=== PATIENT | male | born 1930 | race Two or more races ===

== ENCOUNTER 2016-06-08 18:07 | Inpatient (IN) | payer MEDICARE ==
[2016-06-08 20:35] LABS: Glucose,Whole Blood 171 mg/dL (75-99)
[2016-06-08 21:14] LABS: Basophils % (A) 0 %; CH 29.9; CHCM 34.8; Eosinophils # (A) 0.1 k/uL (0-0.7); Eosinophils % (A) 0 %; HCT 41.3 % (39.0-53.0); HDW 2.83; HGB 14.1 gm/dL (13.0-17.5); Immature Gran Flag Slight; Luc # (Auto) 0.18; Luc % (Auto) 1; Lymphocytes # (A) 0.7 k/uL (1.0-4.8); Lymphocytes % (A) 3 %; MCH 29.5 pg (25.0-35.0); MCHC 34.2 g/dL (31.0-37.0); MCV 86.4 fL (80.0-100.0); Mean Platelet Volume 6.9; Monocytes # (A) 0.8 k/uL (0-1.0); Monocytes % (A) 4 %; Neutrophils # (A) 18.2 k/uL (1.3-7.7); Neutrophils % (A) 91 %; RBC 4.78 m/uL (4.30-5.90); RDW 14.9 % (11.5-15.5); WBC 19.9 k/uL (3.8-10.6); WBC (Perox) 20.85
--- NOTE | 2016-06-08 21:25 | P.GSCN ---
History of Present Illness Consult date: 06/08/16 Reason for Consult: bowel obstruction History of present illness: patient was transferred from [facility] with a diagnosis of bowel obstruction. The patient had a CAT scan performed there. He is a poor historian. He describes episodes of vomiting and abdominal pain. He states his abdominal pain is improved. He currently has a nasogastric tube in place. Apparently he had what was described as coffee-ground emesis at one point. The nasogastric tube output currently is bilious. He has a history of previous colorectal cancer and a previous incisional hernia repair he states.I am unable to access [place] results. His white blood cell count here is 19.9.he is afebrile but mildly tachycardic. 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 Past Anesthesia/Blood Transfusion Reactions: No Reported Reaction Past Psychological History: No Psychological Hx Reported Additional Psychological History / Comment(s): PT LIVES WITH HIS BROTHER, IS INDEPENDANT. 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 Smoking Status: Never smoker Past Alcohol Use History: None Reported Additional Past Alcohol Use History / Comment(s): PT NEVER SMOKED CIG BUT WOULD ENJOY A CIGAR FROM TIME TO TIME IF OFFERED TO HIM Past Drug Use History: None Reported - Past Family History Father Family Medical History: Cancer Additional Family Medical History / Comment(s): COLON CANCER Mother Family Medical History: CVA/TIA, Eye Disorder Additional Family Medical History / Comment(s): MAC DEGENERATION Medications and Allergies Home Medications Medication Instructions Recorded Confirmed Type Aspirin 81 mg PO DAILY 05/23/15 06/08/16 History Atenolol [Tenormin] 25 mg PO DAILY 05/23/15 06/08/16 History Cholecalciferol [Vitamin D3] 1,000 unit PO DAILY 05/23/15 06/08/16 History Vit A,C & E/Lutein/Minerals 1 tab PO DAILY 05/23/15 06/08/16 History [Ocuvite with Lutein Tablet] traMADol HCL [Ultram] 50 mg PO Q6H PRN 02/14/16 06/08/16 History Acetaminophen Tab [Tylenol] 650 mg PO Q4H PRN 06/08/16 06/08/16 History DULoxetine HCL [Cymbalta] 30 mg PO DAILY 06/08/16 06/08/16 History Loperamide [Imodium] 2 mg PO DAILY PRN 06/08/16 06/08/16 History Loratadine [Claritin] 10 mg PO DAILY 06/08/16 06/08/16 History Melatonin 5 mg PO DAILY 06/08/16 06/08/16 History Allergies Allergy/AdvReac Type Severity Reaction Status Date / Time No Known Allergies Allergy Verified 02/14/16 16:00 Surgical - Exam Vital Signs Temp Pulse Resp BP Pulse Ox 98.1 F 110 H 18 114/72 94 L 06/08/16 20:13 06/08/16 20:13 06/08/16 20:13 06/08/16 20:13 06/08/16 20:13 Physical exam: General: elderly white male in no distress, appears comfortable HEENT: Normocephalic, sclerae nonicteric Abdomen: mildly distended, mild diffuse tenderness, no rebound or guarding, no localized tenderness, midline scar with some diastases, no fascial defect palpated Extremities: No edema Neuro: Alert but confused Results - Labs 06/08/16 21:01 Abnormal Lab Results - Last 24 Hours (Table) 06/08/16 06/08/16 Range/Units 20:34 21:01 WBC 19.9 H (3.8-10.6) k/uL Neutrophils # 18.2 H (1.3-7.7) k/uL Lymphocytes # 0.7 L (1.0-4.8) k/uL POC Glucose (mg/dL) 171 H (75-99) mg/dL Assessment and Plan (1) Small bowel obstruction Narrative/Plan: we'll review the patient's CAT scan performed at [place]. Continue nasogastric tube to suction. Add IV Zosyn. Repeat abdominal x-rays tomorrow. Repeat CBC tomorrow. We'll follow closely with you. Status: Acute
[2016-06-08 21:31] LABS: Calcium 9.8 mg/dL (8.4-10.2); Magnesium 1.8 mg/dL (1.6-2.3); Potassium 5.8 mmol/L (3.5-5.1)
[2016-06-08 22:53] LABS: Amorphous Sediment,Urine Rare /hpf; Appearance,Urine Cloudy (Clear); Bilirubin,Urine Negative (Negative); Calcium Oxalate Crystals,Urine Few /hpf; Glucose,Urine (UA) Negative (Negative); Ketones,Urine Trace (Negative); Leukocyte Esterase,Urine Negative (Negative); Nitrite,Urine Negative (Negative); Particle Count 4539; Protein,Urine 1+ (Negative); RBC,Urine 2 /hpf (0-5); Specific Gravity,Urine 1.017 (1.001-1.035); UA Billing (MACRO vs. MICRO) MICRO; WBC,Urine 1 /hpf (0-5)
[2016-06-08] MEDS ORDERED: SODIUM CHLORIDE 0.9% 1,000 ML IV ONE (23:25)
[2016-06-08] MEDS: PIPERACILLIN-TAZOBACTAM 3.375 GM in DEXTROSE/WATER 1 50ML.BAG IVPB SCH (23:38)
[2016-06-09] MEDS: SODIUM CHLORIDE 0.9% 1,000 ML IV SCH ×3 (02:01→23:17)
[2016-06-09 03:19] LABS: Calcium 9.5 mg/dL (8.4-10.2); Potassium 4.8 mmol/L (3.5-5.1)
[2016-06-09 03:24] LABS: Basophils # (A) 0.1 k/uL (0-0.2); Basophils % (A) 1 %; CHCM 34.1; Eosinophils % (A) 0 %; HCT 39.4 % (39.0-53.0); HDW 2.74; HGB 13.1 gm/dL (13.0-17.5); Luc # (Auto) 0.09; Luc % (Auto) 1; Lymphocytes # (A) 0.6 k/uL (1.0-4.8); Lymphocytes % (A) 3 %; MCH 29.3 pg (25.0-35.0); MCHC 33.1 g/dL (31.0-37.0); MCV 88.5 fL (80.0-100.0); Mean Platelet Volume 7.2; Monocytes # (A) 0.5 k/uL (0-1.0); Monocytes % (A) 3 %; Neutrophils # (A) 16.2 k/uL (1.3-7.7); Neutrophils % (A) 93 %; RBC 4.46 m/uL (4.30-5.90); RDW 15.1 % (11.5-15.5); WBC 17.5 k/uL (3.8-10.6); WBC (Perox) 18.46
[2016-06-09] MEDS: ACETAMINOPHEN IV (For NPO) 1,000 MG in EMPTY BAG 1 BAG IVPB PRN ×2 (04:04→16:52)
[2016-06-09 05:50] LABS: Glucose,Whole Blood 160 mg/dL (75-99)
[2016-06-09] MEDS: PIPERACILLIN-TAZOBACTAM 3.375 GM in DEXTROSE/WATER 1 50ML.BAG IVPB SCH ×3 (08:39→23:16)
--- NOTE | 2016-06-09 11:36 | P.PN ---
Subjective Principal diagnosis: Small bowel obstruction Patient sleeping comfortably. Remains slightly confused. Denies abdominal pain however. No flatus or bowel movement per the patient or the nursing staff. Today's abdominal x-rays show a persistent bowel dilation. White blood cell count slightly improved. Lactic acid is now normal. Did have some low- grade fevers. Objective - Vital Signs Vital signs: Vital Signs Temp 99.3 F 06/09/16 08:30 Pulse 88 06/09/16 08:30 Resp 16 06/09/16 08:30 BP 177/90 06/09/16 08:30 Pulse Ox 95 06/09/16 08:30 Intake & Output 06/08/16 06/09/16 06/09/16 18:59 06:59 18:59 Intake Total 1550 Output Total 1181 Balance 369 Weight 68.4 kg Intake: IV 1400 Sodium Chloride 0.9% 1, 1400 000 ml @ 100 mls/hr IV . Q10H [facility] Rx#:[id number] Intake, IV Titration 150 Amount ACETAMINOPHEN IV (For NPO 100 ) 1,000 mg In Empty Bag 1 bag @ 400 mls/hr IVPB Q8HR PRN Rx#:[id number] Piperacillin-Tazobactam 3 50 .375 gm In Dextrose/Water 1 50ml.bag @ 12.5 mls/hr IVPB Q8HR [facility] Rx#: [id number] Output: Gastric Drainage 850 Urine 331 Other: Voiding Method Diaper Indwelling Catheter - Exam Abdomen: Soft, mild distention, minimal tenderness, bowel sounds present - Labs CBC & Chem 7: 06/09/16 02:51 06/09/16 02:51 Labs: Abnormal Lab Results - Last 24 Hours (Table) 06/08/16 06/08/16 06/08/16 Range/Units 20:34 21:01 21:01 WBC 19.9 H (3.8-10.6) k/uL Neutrophils # 18.2 H (1.3-7.7) k/uL Lymphocytes # 0.7 L (1.0-4.8) k/uL Sodium 134 L (137-145) mmol/L Potassium 5.8 H (3.5-5.1) mmol/L Chloride 97 L (98-107) mmol/L Carbon Dioxide 21 L (22-30) mmol/L BUN 35 H (9-20) mg/dL Creatinine 1.40 H (0.66-1.25) mg/dL Glucose 186 H (74-99) mg/dL POC Glucose (mg/dL) 171 H (75-99) mg/dL Plasma Lactic Acid Galen (0.7-2.0) mmol/L Urine Protein (Negative) Urine Ketones (Negative) Calcium Oxalate Crystal (None) /hpf Amorphous Sediment (None) /hpf 06/08/16 06/08/16 06/09/16 Range/Units 21:01 22:25 02:51 WBC 17.5 H (3.8-10.6) k/uL Neutrophils # 16.2 H (1.3-7.7) k/uL Lymphocytes # 0.6 L (1.0-4.8) k/uL Sodium (137-145) mmol/L Potassium (3.5-5.1) mmol/L Chloride (98-107) mmol/L Carbon Dioxide (22-30) mmol/L BUN (9-20) mg/dL Creatinine (0.66-1.25) mg/dL Glucose (74-99) mg/dL POC Glucose (mg/dL) (75-99) mg/dL Plasma Lactic Acid Galen 4.2 H* (0.7-2.0) mmol/L Urine Protein 1+ H (Negative) Urine Ketones Trace H (Negative) Calcium Oxalate Crystal Few H (None) /hpf Amorphous Sediment Rare H (None) /hpf 06/09/16 06/09/16 Range/Units 02:51 05:49 WBC (3.8-10.6) k/uL Neutrophils # (1.3-7.7) k/uL Lymphocytes # (1.0-4.8) k/uL Sodium 136 L (137-145) mmol/L Potassium (3.5-5.1) mmol/L Chloride 97 L (98-107) mmol/L Carbon Dioxide (22-30) mmol/L BUN 39 H (9-20) mg/dL Creatinine 1.47 H (0.66-1.25) mg/dL Glucose 179 H (74-99) mg/dL POC Glucose (mg/dL) 160 H (75-99) mg/dL Plasma Lactic Acid Galen (0.7-2.0) mmol/L Urine Protein (Negative) Urine Ketones (Negative) Calcium Oxalate Crystal (None) /hpf Amorphous Sediment (None) /hpf Microbiology - Last 24 Hours (Table) 06/08/16 22:25 Urine Culture - Preliminary Urine,Catheterized Assessment and Plan (1) Small bowel obstruction Narrative/Plan: Patient with leukocytosis and low-grade fevers. His abdominal examination however is fairly unimpressive. He seems to be responding to bowel decompression. Will repeat abdominal x-rays tomorrow. I will discuss the surgical options with the patient's family and reserve exploration at this time. Status: Acute
[2016-06-09 11:38] LABS: Glucose,Whole Blood 124 mg/dL (75-99)
--- NOTE | 2016-06-09 12:14 | XR ---
EXAMINATION TYPE: XR abdomen complete w decub DATE OF EXAM: 06/09/2016 10:30 AM COMPARISON: NONE HISTORY: Follow up bowel obstruction TECHNIQUE: Supine, upright, and left side down lateral decubitus views of the abdomen are obtained. FINDINGS: Severely dilated small bowel loops measuring 7 cm in diameter. Findings suggest previous conroy rgery. Arthropathy of the hips of previous surgery involving the left hip. Diffuse osteopenia noted. NG tube appears coiled back likely within the stomach. Cannot exclude a small amount of free intraper itoneal air. Degenerative change of the lumbar spine noted. IMPRESSION: 1. Markedly dilated small bowel loops in a pattern suggestive of high-grade obstruction. NG tube has a somewhat unusual course and could be correlated clinically or with CAT scan. Report called to the rudy padron's nurse.
--- NOTE | 2016-06-09 13:11 | P.HPIM ---
History of Present Illness H&P Date: 06/09/16 Chief Complaint: Abdominal pain This is a 85-year-old gentleman with past medical history noted below significant for advanced dementia and bilateral hearing loss who was transferred from [facility] for further evaluation of small bowel obstruction. Patient is very hard of hearing and is a very poor historian. Today he was lethargic and hardly arousable. He eventually woke up but was unable to provide any significant medical history. He denies any significant abdominal pain and reports some mild abdominal discomfort. He denies any nausea or vomiting. He had an NG tube inserted and connected to intermittent wall suctioning. No bowel movement or passing of flatus since last night. General surgery following closely. Abdominal x-ray this morning showed high- grade small bowel obstruction with a suspected dilated loop of 7 cm. Review of Systems Review of system: 14 points review of systems were obtained and were negative except to what were mentioned in the HPI. 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 lives at [employer] Smoking Status: Never smoker Past Alcohol Use History: None Reported Additional Past Alcohol Use History / Comment(s): PT NEVER SMOKED CIG BUT WOULD ENJOY A CIGAR FROM TIME TO TIME IF OFFERED TO HIM Past Drug Use History: None Reported - Past Family History Father Family Medical History: Cancer Additional Family Medical History / Comment(s): COLON CANCER Mother Family Medical History: CVA/TIA, Eye Disorder Additional Family Medical History / Comment(s): MAC DEGENERATION Medications and Allergies Home Medications Medication Instructions Recorded Confirmed Type Aspirin 81 mg PO DAILY 05/23/15 06/08/16 History Atenolol [Tenormin] 25 mg PO DAILY 05/23/15 06/08/16 History Cholecalciferol [Vitamin D3] 1,000 unit PO DAILY 05/23/15 06/08/16 History Vit A,C & E/Lutein/Minerals 1 tab PO DAILY 05/23/15 06/08/16 History [Ocuvite with Lutein Tablet] traMADol HCL [Ultram] 50 mg PO Q6H PRN 02/14/16 06/08/16 History Acetaminophen Tab [Tylenol] 650 mg PO Q4H PRN 06/08/16 06/08/16 History DULoxetine HCL [Cymbalta] 30 mg PO DAILY 06/08/16 06/08/16 History Loperamide [Imodium] 2 mg PO DAILY PRN 06/08/16 06/08/16 History Loratadine [Claritin] 10 mg PO DAILY 06/08/16 06/08/16 History Melatonin 5 mg PO DAILY 06/08/16 06/08/16 History Allergies Allergy/AdvReac Type Severity Reaction Status Date / Time No Known Allergies Allergy Verified 02/14/16 16:00 Physical Exam Vitals: Vital Signs Temp Pulse Resp BP Pulse Ox 06/09/16 11:20 92 16 175/89 94 L 06/09/16 08:30 99.3 F 88 16 177/90 95 06/09/16 03:25 91 16 06/09/16 03:21 100.2 F H 91 16 169/79 95 06/09/16 01:05 99.6 F 94 16 163/77 94 L 06/09/16 00:00 98 18 06/08/16 22:59 100.5 F H 98 18 145/83 90 L 06/08/16 20:13 98.1 F 110 H 18 114/72 94 L 06/08/16 20:00 110 H Intake and Output 06/08/16 06/09/16 06/09/16 22:59 06:59 14:59 Intake Total 1550 Output Total 301 880 Balance -301 670 Intake: IV 1400 Sodium Chloride 0.9% 1, 1400 000 ml @ 100 mls/hr IV . Q10H [facility] Rx#:[id number] Intake, IV Titration 150 Amount ACETAMINOPHEN IV (For NPO 100 ) 1,000 mg In Empty Bag 1 bag @ 400 mls/hr IVPB Q8HR PRN Rx#:[id number] Piperacillin-Tazobactam 3 50 .375 gm In Dextrose/Water 1 50ml.bag @ 12.5 mls/hr IVPB Q8HR [facility] Rx#: [id number] Output: Gastric Drainage 300 550 Urine 1 330 Other: Voiding Method Diaper Diaper Indwelling Catheter Weight 68.4 kg 68.4 kg General: The patient is lethargic and hardly arousable. He is very hard of hearing. He was oriented to himself and to the place only. He is not in any acute distress. Eye: extra-ocular movements are intact; there is normal conjunctiva bilaterally. . Neck: The neck is supple, there is no tenderness or JVD. Cardiovascular: Normal S1-S2, no S3-S4, no murmurs. Respiratory: Lungs clear to auscultation bilaterally with no wheezes rhonchi or rales. Gastrointestinal: Abdomen is soft, mildly tender, and nondistended Musculoskeletal: There is no pedal edema. Skin: Skin is warm and dry Results CBC & Chem 7: 06/09/16 02:51 06/09/16 02:51 Labs: Abnormal Lab Results - Last 24 Hours (Table) 06/08/16 06/08/16 06/08/16 Range/Units 20:34 21:01 21:01 WBC 19.9 H (3.8-10.6) k/uL Neutrophils # 18.2 H (1.3-7.7) k/uL Lymphocytes # 0.7 L (1.0-4.8) k/uL Sodium 134 L (137-145) mmol/L Potassium 5.8 H (3.5-5.1) mmol/L Chloride 97 L (98-107) mmol/L Carbon Dioxide 21 L (22-30) mmol/L BUN 35 H (9-20) mg/dL Creatinine 1.40 H (0.66-1.25) mg/dL Glucose 186 H (74-99) mg/dL POC Glucose (mg/dL) 171 H (75-99) mg/dL Plasma Lactic Acid Galen (0.7-2.0) mmol/L Urine Protein (Negative) Urine Ketones (Negative) Calcium Oxalate Crystal (None) /hpf Amorphous Sediment (None) /hpf 06/08/16 06/08/16 06/09/16 Range/Units 21:01 22:25 02:51 WBC 17.5 H (3.8-10.6) k/uL Neutrophils # 16.2 H (1.3-7.7) k/uL Lymphocytes # 0.6 L (1.0-4.8) k/uL Sodium (137-145) mmol/L Potassium (3.5-5.1) mmol/L Chloride (98-107) mmol/L Carbon Dioxide (22-30) mmol/L BUN (9-20) mg/dL Creatinine (0.66-1.25) mg/dL Glucose (74-99) mg/dL POC Glucose (mg/dL) (75-99) mg/dL Plasma Lactic Acid Galen 4.2 H* (0.7-2.0) mmol/L Urine Protein 1+ H (Negative) Urine Ketones Trace H (Negative) Calcium Oxalate Crystal Few H (None) /hpf Amorphous Sediment Rare H (None) /hpf 06/09/16 06/09/16 06/09/16 Range/Units 02:51 05:49 11:35 WBC (3.8-10.6) k/uL Neutrophils # (1.3-7.7) k/uL Lymphocytes # (1.0-4.8) k/uL Sodium 136 L (137-145) mmol/L Potassium (3.5-5.1) mmol/L Chloride 97 L (98-107) mmol/L Carbon Dioxide (22-30) mmol/L BUN 39 H (9-20) mg/dL Creatinine 1.47 H (0.66-1.25) mg/dL Glucose 179 H (74-99) mg/dL POC Glucose (mg/dL) 160 H 124 H (75-99) mg/dL Plasma Lactic Acid Galen (0.7-2.0) mmol/L Urine Protein (Negative) Urine Ketones (Negative) Calcium Oxalate Crystal (None) /hpf Amorphous Sediment (None) /hpf Microbiology - Last 24 Hours (Table) 06/08/16 22:25 Urine Culture - Preliminary Urine,Catheterized Thrombosis Risk Factor Assmnt - Choose All That Apply Any of the Below Risk Factors Present?: Yes Each Factor Represents 1 point: Medical pt on bed rest, Swollen legs (current) Other Risk Factors: Yes Each Risk Factor Represents 3 Points: Age 75 years or older Thrombosis Risk Factor Assessment Total Risk Factor Score: 5 Thrombosis Risk Factor Assessment Level: High Risk Assessment and Plan Plan: 1. Small bowel obstruction: Gen. surgery following closely. We will discuss abdominal x-ray findings and consider computed tomography scan of the abdomen. Continue NG tube to intermittent wall suctioning. 2. Sepsis on presentation most likely secondary to intra-abdominal source. Currently on IV Zosyn. Blood culture sent. Lactate is back to normal. I will consult infectious disease for further evaluation. 3. Essential hypertension: Blood pressure elevated this morning. May use IV hydralazine as needed for systolic blood pressure above 155 4. Advanced dementia 5. Bilateral hearing loss 6. GI and DVT prophylaxis with IV Protonix and subcu heparin Today, I reviewed his medication list lab work results. We will continue supportive care and IV fluid hydration. Pain control and anti-emetic as needed. No family members at bedside. We will attempt to reach by phone. Repeat lab work in the morning. Appreciate safety consultant's recommendations.
[2016-06-09] MEDS: PANTOPRAZOLE 40 MG/10 ML VIAL IVP SCH (13:28)
[2016-06-09] MEDS: hydrALAZINE HCL 20 MG/ML 1 ML VIAL IVP PRN (13:29)
[2016-06-09 17:10] LABS: Glucose,Whole Blood 106 mg/dL (75-99)
[2016-06-09 20:44] LABS: Glucose,Whole Blood 95 mg/dL (75-99)
[2016-06-09] MEDS: HEPARIN SODIUM,PORCINE 5,000 UNIT/ML 1 ML VIAL SQ SCH (23:17)
[2016-06-10 05:42] LABS: Glucose,Whole Blood 92 mg/dL (75-99)
[2016-06-10] MEDS: SODIUM CHLORIDE 0.9% 1,000 ML IV SCH ×2 (06:19→08:42)
[2016-06-10 06:55] LABS: Basophils % (A) 0 %; CH 29.3; CHCM 32.5; Eosinophils % (A) 0 %; HCT 33.7 % (39.0-53.0); HDW 2.76; Luc # (Auto) 0.15; Luc % (Auto) 2; Lymphocytes # (A) 0.7 k/uL (1.0-4.8); Lymphocytes % (A) 7 %; MCH 29.6 pg (25.0-35.0); MCHC 32.6 g/dL (31.0-37.0); MCV 90.6 fL (80.0-100.0); Mean Platelet Volume 6.2; Monocytes # (A) 0.6 k/uL (0-1.0); Monocytes % (A) 5 %; Neutrophils # (A) 8.8 k/uL (1.3-7.7); Neutrophils % (A) 86 %; RBC 3.72 m/uL (4.30-5.90); RDW 14.8 % (11.5-15.5); WBC 10.2 k/uL (3.8-10.6); WBC (Perox) 10.79
[2016-06-10 07:08] LABS: ALT 27 U/L (21-72); AST 21 U/L (17-59); Alkaline Phosphatase 71 U/L (38-126); Anion Gap 8 mmol/L; Blood Urea Nitrogen 35 mg/dL (9-20); Calcium 8.7 mg/dL (8.4-10.2); Carbon Dioxide 28 mmol/L (22-30); Chloride 104 mmol/L (98-107); Glucose 88 mg/dL (74-99); Magnesium 1.9 mg/dL (1.6-2.3); Non-African American GFR(MDRD) >60 (>60 ml/min/1.73 sqM); Potassium 3.9 mmol/L (3.5-5.1); Sodium 140 mmol/L (137-145); Total Bilirubin 0.7 mg/dL (0.2-1.3); Total Protein 5.6 g/dL (6.3-8.2)
--- NOTE | 2016-06-10 08:02 | CONS ---
DATE OF CONSULTATION: DATE OF SERVICE: 06/09/2016 REASON FOR CONSULTATION: Sepsis. HISTORY OF PRESENT ILLNESS: The patient is an 85-year-old male who has been transferred from [facility] for further evaluation of small bowel obstruction. Apparently, the patient presented to that facility with weakness, abdominal pain and throwing up. He did apparently have a CAT scan at that facility with evidence of a small bowel obstruction. The patient did have NT placed in and has been transferred to the [facility] for further evaluation. Patient did spike a low-grade fever of 100.5 and did have an elevated white count with concern for sepsis. The patient has been started on Zosyn. I was asked to see the patient for further recommendation regarding antibiotic therapy. Most of the information has been obtained from review of the chart and talking to nursing staff as the patient is unable to report any reliable history. He is mostly sleepy, lethargic and did not answer a single question and no family member was available at the bedside. He did have an NG which was mostly dark NG output. No bowel movement per the sitter or the RN and hemodynamically stable, not on any pressor support. REVIEW OF SYSTEMS: Could not be reliably obtained, but the positive points has been mentioned in the HPI. PAST MEDICAL HISTORY: Significant for hypertension, osteoarthritis, musculoskeletal disorder, eye disorder, cancer. He did have a history of colorectal cancer. macular degeneration and hard of hearing. PAST SURGICAL HISTORY: Bowel resection, hernia repair and left hip surgery. SOCIAL HISTORY: No history of smoking, drinking, or drug use. FAMILY HISTORY: Father had colon cancer. Mother with history of CVA, TIA and macular degeneration. ALLERGIES: No known drug allergies. Medications currently include the patient is on Tylenol, heparin, hydralazine, Protonix, piperacillin tazobactam, and IV fluid. On examination, blood pressure is 138/61 with a pulse of 95, temperature 99.6. T-max of 100.5. He is 96% on room air. General description is an elderly male, lying in bed in no distress. No tachypnea or accessory muscle of respiration use. HEENT EXAMINATION: No pallor or scleral icterus. Oral mucous membrane is dry. NECK: Trachea central. There is no thyromegaly. LUNGS: Unlabored breathing. Clear to auscultation anteriorly. No wheeze or crackle. HEART: S1, S2. Regular rate and rhythm. ABDOMEN: Soft, slightly tender. No organomegaly. EXTREMITIES: No edema of feet. SKIN EXAMINATION: No rash or mass palpable. NEUROLOGICAL: The patient is lethargic. Orientation could not be determined. LABS: Hemoglobin is 13.1. White count 17.5, yesterday's white count was 19.9 with a BUN of 39, creatinine 1.47. Lactic acid was 4.2 down to 1.5. Urine has been negative. DIAGNOSTIC IMPRESSION AND PLAN: Patient with sepsis in a patient who did have a fever with elevated white count source is likely abdominal in this patient and this patient at present has been transferred to this facility because of a small bowel obstruction, did have an elevated lactic acid likely abdominal source and the patient did have previous abdominal surgery with a question of possible adhesion with secondary small bowel obstruction or possibly ischemia cannot be entirely excluded. We will need to cover for the enteric gram-negative pathogen, both aerobes and anaerobes. PLAN: 1. Zosyn at 3.375 grams q8hr to continue. 2. Will follow up on the blood cultures that was ordered yesterday. 3. Repeat abdominal series tomorrow and if no improvement he may benefit from a repeat CT of the abdomen and pelvis. 4. Will follow up on the clinical condition and cultures to further adjust the medication if needed. Thank you for this consultation. We will follow this patient along with you. VANESSA
[2016-06-10] MEDS: PIPERACILLIN-TAZOBACTAM 3.375 GM in DEXTROSE/WATER 1 50ML.BAG IVPB SCH ×2 (08:39→16:57)
[2016-06-10] MEDS: HEPARIN SODIUM,PORCINE 5,000 UNIT/ML 1 ML VIAL SQ SCH ×2 (08:40→21:15)
[2016-06-10] MEDS: PANTOPRAZOLE 40 MG/10 ML VIAL IVP SCH (08:43)
--- NOTE | 2016-06-10 11:07 | XR ---
EXAMINATION TYPE: XR abdomen complete w decub DATE OF EXAM: 06/10/2016 10:15 AM COMPARISON: Prior abdomen multiple view of 09 June 2016 HISTORY: Bowel obstruction TECHNIQUE: 3 views of the abdomen on 4 images FINDINGS: NG tube is coiled within the stomach. There is no evidence for pneumoperitoneum. Improvement in the bowel distention is noted. NG tube is present. Some air-fluid levels are present. No mass effects are seen. Calcifications within the pelvis are stable, post anterior abdominal wall hernia repair change is ivy pected. IMPRESSION: Suspect some interval improvement.
[2016-06-10] MEDS: hydrALAZINE HCL 20 MG/ML 1 ML VIAL IVP PRN (12:01)
[2016-06-10] MEDS: DEXTROSE 5%-0.45% NACL 1,000 ML IV SCH ×2 (12:01→21:15)
[2016-06-10] MEDS: ONDANSETRON 4 MG/2 ML VIAL IVP PRN (12:01)
[2016-06-10 12:02] LABS: Glucose,Whole Blood 75 mg/dL (75-99)
--- NOTE | 2016-06-10 12:08 | P.PN ---
Subjective Patient appeared comfortable today. He is passing gas. Output through the NG tube is improving. Abdominal x-ray showed some improvement this morning. Objective - Vital Signs Vital signs: Vital Signs Temp 96.7 F L 06/10/16 11:37 Pulse 63 06/10/16 11:37 Resp 18 06/10/16 11:37 BP 162/70 06/10/16 11:37 Pulse Ox 98 06/10/16 11:37 Intake & Output 06/09/16 06/10/16 06/10/16 18:59 06:59 18:59 Intake Total 850 1150 Output Total 700 800 800 Balance 150 350 -800 Weight 68.4 kg 71.5 kg Intake: IV 850 1150 Piperacillin-Tazobactam 3 50 50 .375 gm In Dextrose/Water 1 50ml.bag @ 12.5 mls/hr IVPB Q8HR [facility] Rx#: [id number] Sodium Chloride 0.9% 1, 800 1100 000 ml @ 100 mls/hr IV . Q10H [facility] Rx#:[id number] Oral 0 Output: Gastric Drainage 300 100 Urine 400 700 800 Other: Voiding Method Indwelling Catheter Indwelling Catheter Indwelling Catheter # Bowel Movements 1 1 - Exam General: The patient is awake and alert, in no distress Eye: there is normal conjunctiva bilaterally. Neck: The neck is supple, there is no JVD. Cardiovascular: Normal S1-S2, no S3-S4, no murmurs. Respiratory: Lungs clear to auscultation bilaterally Gastrointestinal: Abdomen is soft, nontender Musculoskeletal: There is no pedal edema. Neurological:. Speech is normal. Skin: Skin is warm and dry - Labs CBC & Chem 7: 06/10/16 06:25 06/10/16 06:25 Labs: Abnormal Lab Results - Last 24 Hours (Table) 06/09/16 06/10/16 06/10/16 Range/Units 16:49 06:25 06:25 RBC 3.72 L (4.30-5.90) m/uL Hgb 11.0 L (13.0-17.5) gm/dL Hct 33.7 L (39.0-53.0) % Neutrophils # 8.8 H (1.3-7.7) k/uL Lymphocytes # 0.7 L (1.0-4.8) k/uL BUN 35 H (9-20) mg/dL POC Glucose (mg/dL) 106 H (75-99) mg/dL Total Protein 5.6 L (6.3-8.2) g/dL Albumin 3.0 L (3.5-5.0) g/dL Microbiology - Last 24 Hours (Table) 06/08/16 21:01 Blood Culture - Preliminary Blood No Growth after 24 hours 06/08/16 22:25 Urine Culture - Preliminary Urine,Catheterized Assessment and Plan Plan: 1. Small bowel obstruction: Gen. surgery following closely. Repeat abdominal x -ray showing some improvement. Abdomen is soft on exam. Output through the NG tube is decreasing. Continue NG tube to intermittent wall suctioning. 2. Sepsis on presentation most likely secondary to intra-abdominal source. Currently on IV Zosyn. Blood culture sent. Lactate is back to normal. Infectious disease following. 3. Essential hypertension: Blood pressure elevated this morning. Add clonidine patch now that the patient is nothing by mouth. Continue IV hydralazine as needed for systolic blood pressure above 155 4. Advanced dementia 5. Bilateral hearing loss 6. GI and DVT prophylaxis with IV Protonix and subcu heparin Today, I reviewed his medication list lab work results. We will continue supportive care and IV fluid hydration. Pain control and anti-emetic as needed. Sister at bedside updated about his current condition. Questions answered to her satisfaction. Repeat lab work in the morning. Appreciate regulatory affairs consultant's recommendations.
[2016-06-10] MEDS ORDERED: cloNIDine 0.2 MG/24HR PATCH 1 PATCH PATCH TRANSDERM SCH (12:15)
[2016-06-10] MEDS ORDERED: ACETAMINOPHEN IV (For NPO) 1,000 MG in EMPTY BAG 1 BAG IVPB PRN (14:08)
[2016-06-10] MEDS: HYDROmorphone 1 MG/ML 1 ML SYRINGE IVP PRN (14:39)
--- NOTE | 2016-06-10 16:09 | P.PN ---
Subjective Principal diagnosis: Small bowel obstruction Patient did have a small bowel movement last night. His nasogastric output is diminished. He was having some pain rated at a 4 out of 10 earlier today. Low- grade fever of 99.6. White blood cell count today is normal at 10.2. X-rays are improved however there is still some small bowel dilation. Objective - Vital Signs Vital signs: Vital Signs Temp 99.6 F 06/10/16 14:01 Pulse 100 06/10/16 14:01 Resp 16 06/10/16 14:01 BP 126/58 06/10/16 14:01 Pulse Ox 99 06/10/16 14:01 Intake & Output 06/09/16 06/10/16 06/10/16 18:59 06:59 18:59 Intake Total 850 1150 Output Total 700 800 800 Balance 150 350 -800 Weight 68.4 kg 71.5 kg Intake: IV 850 1150 Piperacillin-Tazobactam 3 50 50 .375 gm In Dextrose/Water 1 50ml.bag @ 12.5 mls/hr IVPB Q8HR [facility] Rx#: [id number] Sodium Chloride 0.9% 1, 800 1100 000 ml @ 100 mls/hr IV . Q10H [facility] Rx#:[id number] Oral 0 Output: Gastric Drainage 300 100 Urine 400 700 800 Other: Voiding Method Indwelling Catheter Indwelling Catheter Indwelling Catheter # Bowel Movements 1 1 - Exam Abdomen: Soft, nondistended mild right-sided tenderness - Labs CBC & Chem 7: 06/10/16 06:25 06/10/16 06:25 Labs: Abnormal Lab Results - Last 24 Hours (Table) 06/09/16 06/10/16 06/10/16 Range/Units 16:49 06:25 06:25 RBC 3.72 L (4.30-5.90) m/uL Hgb 11.0 L (13.0-17.5) gm/dL Hct 33.7 L (39.0-53.0) % Neutrophils # 8.8 H (1.3-7.7) k/uL Lymphocytes # 0.7 L (1.0-4.8) k/uL BUN 35 H (9-20) mg/dL POC Glucose (mg/dL) 106 H (75-99) mg/dL Total Protein 5.6 L (6.3-8.2) g/dL Albumin 3.0 L (3.5-5.0) g/dL Microbiology - Last 24 Hours (Table) 06/08/16 22:25 Urine Culture - Final Urine,Catheterized 06/08/16 21:01 Blood Culture - Preliminary Blood No Growth after 24 hours Assessment and Plan (1) Small bowel obstruction Narrative/Plan: The patient small bowel obstruction is improving clinically. The patient's sister is present at the bedside. The clinical scenario was discussed in detail with her and her 2 brothers. The fairly impressive appearance of his presentation CAT scan was discussed. His elevated white blood cell count that is improved was reviewed. His low-grade fevers was also discussed. Clinically the patient is improving however I still have concerns that he may not resolve this bowel obstruction nonoperatively. Operative exploration was offered at this point and discussed in detail. They are not interested in surgery at this point. At one point the patient's sister mentioned that he would rather be hospice then have surgery. We will repeat abdominal x-rays tomorrow. Continue bowel decompression at this point. We'll follow closely with you. Status: Acute
[2016-06-10 16:50] LABS: Glucose,Whole Blood 95 mg/dL (75-99)
[2016-06-10 21:11] LABS: Glucose,Whole Blood 97 mg/dL (75-99)
--- NOTE | 2016-06-10 21:32 | PN ---
DATE OF SERVICE: 06/10/2016 REASON FOR FOLLOWUP: Sepsis, possible abdominal source. INTERVAL HISTORY: The patient is afebrile. He seemed to be more awake, alert today. He is not a very good historian. Output in the NG has decreased. Abdominal pain was unable to quantify any further. On examination, blood pressure 126/58 with a pulse of 100, temperature 99.6. He is 99% on room air. General description is an elderly male lying in bed in no distress. RESPIRATORY SYSTEM: Unlabored breathing. Clear to auscultation anteriorly. HEART: S1, S2. Regular rate and rhythm. ABDOMEN: Soft, no tenderness. LABS: Hemoglobin is 11, white count 10.2 with a BUN of 35, creatinine 1.02. DIAGNOSTIC IMPRESSION AND PLAN: Patient admitted to hospital with abdominal pain, did have a low-grade fever, elevated white count with concern of abdominal sepsis. Patient's blood cultures so far are negative. White count did improve. He will be maintained on Zosyn at this point. Family present at beside. Their questions were answered. VANESSA
[2016-06-11] MEDS: PIPERACILLIN-TAZOBACTAM 3.375 GM in DEXTROSE/WATER 1 50ML.BAG IVPB SCH ×3 (00:34→16:06)
[2016-06-11] MEDS: hydrALAZINE HCL 20 MG/ML 1 ML VIAL IVP PRN ×2 (00:50→11:43)
[2016-06-11] MEDS: DEXTROSE 5%-0.45% NACL 1,000 ML IV SCH ×2 (06:14→21:57)
[2016-06-11 06:15] LABS: Glucose,Whole Blood 106 mg/dL (75-99)
[2016-06-11 06:28] LABS: Basophils % (A) 0 %; CH 29.8; CHCM 33.7; Eosinophils # (A) 0.2 k/uL (0-0.7); Eosinophils % (A) 1 %; HDW 2.92; HGB 11.8 gm/dL (13.0-17.5); Luc # (Auto) 0.13; Luc % (Auto) 1; Lymphocytes # (A) 0.7 k/uL (1.0-4.8); Lymphocytes % (A) 7 %; MCH 29.9 pg (25.0-35.0); MCHC 33.5 g/dL (31.0-37.0); MCV 89.1 fL (80.0-100.0); Monocytes # (A) 0.6 k/uL (0-1.0); Monocytes % (A) 6 %; Neutrophils # (A) 9.1 k/uL (1.3-7.7); Neutrophils % (A) 85 %; RBC 3.94 m/uL (4.30-5.90); RDW 14.8 % (11.5-15.5); WBC 10.7 k/uL (3.8-10.6); WBC (Perox) 10.59
[2016-06-11 06:49] LABS: ALT 27 U/L (21-72); AST 19 U/L (17-59); Alkaline Phosphatase 77 U/L (38-126); Anion Gap 9 mmol/L; Blood Urea Nitrogen 18 mg/dL (9-20); Calcium 8.5 mg/dL (8.4-10.2); Carbon Dioxide 23 mmol/L (22-30); Chloride 103 mmol/L (98-107); Glucose 110 mg/dL (74-99); Magnesium 1.8 mg/dL (1.6-2.3); Non-African American GFR(MDRD) >60 (>60 ml/min/1.73 sqM); Potassium 3.4 mmol/L (3.5-5.1); Sodium 135 mmol/L (137-145); Total Bilirubin 0.9 mg/dL (0.2-1.3); Total Protein 5.5 g/dL (6.3-8.2)
[2016-06-11] MEDS: PANTOPRAZOLE 40 MG/10 ML VIAL IVP SCH (09:30)
[2016-06-11] MEDS: HEPARIN SODIUM,PORCINE 5,000 UNIT/ML 1 ML VIAL SQ SCH ×2 (09:30→20:34)
[2016-06-11] MEDS: POTASSIUM CHLORIDE 10 MEQ, LIDOCAINE 2% INJ 10 MG in SODIUM CHLORIDE 0.9% 100 ML IVPB SCH ×2 (09:31→11:43)
--- NOTE | 2016-06-11 11:14 | P.PN ---
Subjective This is a 85-year-old with advanced dementia and hearing loss. Was transferred from [facility]. He is found have a small bowel obstruction. Currently has NG tube in place. Surgical service is following. Today's abdominal x-rays pending. Patient lying in bed comfortably. Patient had about 100 mL coffee brown output through NG tube last night. No bowel movement or gas reported. Pain controlled. Objective - Vital Signs Vital signs: Vital Signs Temp 97.2 F L 06/11/16 08:00 Pulse 89 06/11/16 08:00 Resp 18 06/11/16 08:00 BP 148/70 06/11/16 08:00 Pulse Ox 97 06/11/16 08:00 Intake & Output 06/10/16 06/11/16 06/11/16 18:59 06:59 18:59 Intake Total 900 800 Output Total 1300 50 1350 Balance -400 750 -1350 Weight 71 kg Intake: IV 900 800 Piperacillin-Tazobactam 3 100 .375 gm In Dextrose/Water 1 50ml.bag @ 12.5 mls/hr IVPB Q8HR [facility] Rx#: [id number] Sodium Chloride 0.9% 1, 800 800 000 ml @ 100 mls/hr IV . Q10H [facility] Rx#:[id number] Oral 0 Output: Gastric Drainage 100 50 Urine 1200 1350 Other: Voiding Method Indwelling Catheter Indwelling Catheter Indwelling Catheter # Bowel Movements 1 - Exam Head normocephalic Neck supple Lungs clear to auscultation bilaterally no wheezing or crackles Heart regular rate and rhythm S1-S2, no rub or gallop Abdomen is soft nondistended. Mild diffuse tenderness with palpation Extremities no edema Neuro awake and pleasantly confused - Labs CBC & Chem 7: 06/11/16 06:03 06/11/16 06:03 Labs: Abnormal Lab Results - Last 24 Hours (Table) 06/11/16 06/11/16 06/11/16 Range/Units 06:03 06:03 06:12 WBC 10.7 H (3.8-10.6) k/uL RBC 3.94 L (4.30-5.90) m/uL Hgb 11.8 L (13.0-17.5) gm/dL Hct 35.0 L (39.0-53.0) % Neutrophils # 9.1 H (1.3-7.7) k/uL Lymphocytes # 0.7 L (1.0-4.8) k/uL Sodium 135 L (137-145) mmol/L Potassium 3.4 L (3.5-5.1) mmol/L Glucose 110 H (74-99) mg/dL POC Glucose (mg/dL) 106 H (75-99) mg/dL Total Protein 5.5 L (6.3-8.2) g/dL Albumin 3.1 L (3.5-5.0) g/dL Microbiology - Last 24 Hours (Table) 06/08/16 21:01 Blood Culture - Preliminary Blood No Growth after 48 hours 06/08/16 22:25 Urine Culture - Final Urine,Catheterized Assessment and Plan Plan: 1. Small bowel obstruction: Surgery is following closely. Appreciate their input. Abdominal x-ray pending. NG tube still in place. Surgery did offer operative exploration. however, family was not interested in surgery at this point. 2. Sepsis on presentation most likely secondary to intra-abdominal source. Currently on IV Zosyn. Blood culture negative so far. Lactate is back to normal. Infectious disease following. 3. Essential hypertension: Blood pressures have shown improvement with the clonidine patch. Continue with hydralazine as needed 4. Advanced dementia 5. Bilateral hearing loss 6. GI and DVT prophylaxis with IV Protonix and subcu heparin 7. Hypokalemia patient receiving potassium supplement. Repeat labs in a.m.
[2016-06-11 12:00] LABS: Glucose,Whole Blood 102 mg/dL (75-99)
--- NOTE | 2016-06-11 14:09 | XR ---
EXAMINATION TYPE: XR abdomen complete w decub DATE OF EXAM: 06/11/2016 1:59 PM COMPARISON: Prior multiple view abdomen 10 June 2016 HISTORY: Follow-up obstruction TECHNIQUE: Supine, upright, and left side down lateral decubitus views of the abdomen are obtained. FINDINGS: There is no evidence for pneumoperitoneum. The bowel gas pattern is unremarkable as there is air throughout nondilated small and large bowel. No sizeable air fluid levels. No mass effects are seen. No unusual calcifications. IMPRESSION: Similar to prior exam.
--- NOTE | 2016-06-11 16:58 | P.PN ---
Subjective Principal diagnosis: Small bowel obstruction Patient doing well today. He states he passed flatus. No bowel movement. Today's x-rays show improvement in the bowel gas pattern with no evidence of obstruction at this time. He is afebrile. His white blood cell count is normal. Objective - Vital Signs Vital signs: Vital Signs Temp 98.5 F 06/11/16 15:10 Pulse 92 06/11/16 16:00 Resp 18 06/11/16 16:00 BP 140/68 06/11/16 15:10 Pulse Ox 98 06/11/16 15:10 Intake & Output 06/10/16 06/11/16 06/11/16 18:59 06:59 18:59 Intake Total 900 800 850 Output Total 1300 50 1450 Balance -400 750 -600 Weight 71 kg 71 kg Intake: IV 900 800 50 Piperacillin-Tazobactam 3 100 50 .375 gm In Dextrose/Water 1 50ml.bag @ 12.5 mls/hr IVPB Q8HR [facility] Rx#: [id number] Sodium Chloride 0.9% 1, 800 800 000 ml @ 100 mls/hr IV . Q10H [facility] Rx#:[id number] Intake, IV Titration 800 Amount Dextrose 5%-0.45% NaCl 1, 600 000 ml @ 100 mls/hr IV . Q10H [facility] Rx#:[id number] Potassium Chloride 10 meq 200 Lidocaine 2% Inj 10 mg In Sodium Chloride 0.9% 100 ml @ 100 mls/hr IVPB Q1HR [facility] Rx#:[id number] Oral 0 Output: Gastric Drainage 100 50 100 Urine 1200 1350 Other: Voiding Method Indwelling Catheter Indwelling Catheter Indwelling Catheter # Bowel Movements 1 - Exam Abdomen: Soft, nondistended, nontender - Labs CBC & Chem 7: 06/11/16 06:03 06/11/16 06:03 Labs: Abnormal Lab Results - Last 24 Hours (Table) 06/11/16 06/11/16 06/11/16 Range/Units 06:03 06:03 06:12 WBC 10.7 H (3.8-10.6) k/uL RBC 3.94 L (4.30-5.90) m/uL Hgb 11.8 L (13.0-17.5) gm/dL Hct 35.0 L (39.0-53.0) % Neutrophils # 9.1 H (1.3-7.7) k/uL Lymphocytes # 0.7 L (1.0-4.8) k/uL Sodium 135 L (137-145) mmol/L Potassium 3.4 L (3.5-5.1) mmol/L Glucose 110 H (74-99) mg/dL POC Glucose (mg/dL) 106 H (75-99) mg/dL Total Protein 5.5 L (6.3-8.2) g/dL Albumin 3.1 L (3.5-5.0) g/dL 06/11/16 Range/Units 11:58 WBC (3.8-10.6) k/uL RBC (4.30-5.90) m/uL Hgb (13.0-17.5) gm/dL Hct (39.0-53.0) % Neutrophils # (1.3-7.7) k/uL Lymphocytes # (1.0-4.8) k/uL Sodium (137-145) mmol/L Potassium (3.5-5.1) mmol/L Glucose (74-99) mg/dL POC Glucose (mg/dL) 102 H (75-99) mg/dL Total Protein (6.3-8.2) g/dL Albumin (3.5-5.0) g/dL Microbiology - Last 24 Hours (Table) 06/08/16 21:01 Blood Culture - Preliminary Blood No Growth after 48 hours 06/08/16 22:25 Urine Culture - Final Urine,Catheterized Assessment and Plan (1) Small bowel obstruction Narrative/Plan: We will remove the nasogastric tube and begin a clear liquid diet. Increase activity level. Consult PT and OT. Status: Acute
--- NOTE | 2016-06-11 18:17 | PN ---
DATE OF SERVICE: 06/11/2016 REASON FOR FOLLOWUP: Sepsis, possible abdominal source. INTERVAL HISTORY: The patient is afebrile. He remains to be weak sleepy, lethargic, though hemodynamically stable, not on pressor support. Unable to provide any reliable history. No family member available at the bedside. On examination, blood pressure 104/68 with a pulse of 92, temperature 98.5. He is 98% on room air. General description is an elderly male, lying in bed in no distress. RESPIRATORY SYSTEM: Unlabored breathing. Clear to auscultation anteriorly. HEART: S1, S2. Regular rate and rhythm. ABDOMEN: Soft. No tenderness. LABS: Hemoglobin is 11.8, white count of 10.7. BUN of 18, creatinine 0.8. Blood, urine cultures so far negative. DIAGNOSTIC IMPRESSION AND PLAN: Patient admitted to hospital with possible abdominal sepsis in a patient found to have a fever, elevated white count and a small-bowel obstruction, currently being managed conservatively with NG suction and bowel rest. Antibiotic will be continued. Hopefully switch to oral once his oral intake improve. Continue with supportive care. VANESSA
[2016-06-11 20:40] LABS: Glucose,Whole Blood 117 mg/dL (75-99)
[2016-06-12] MEDS: PIPERACILLIN-TAZOBACTAM 3.375 GM in DEXTROSE/WATER 1 50ML.BAG IVPB SCH ×4 (00:07→23:36)
[2016-06-12] MEDS: hydrALAZINE HCL 20 MG/ML 1 ML VIAL IVP PRN (00:15)
[2016-06-12] MEDS: DEXTROSE 5%-0.45% NACL 1,000 ML IV SCH ×3 (03:46→23:36)
[2016-06-12 06:51] LABS: Glucose,Whole Blood 114 mg/dL (75-99)
[2016-06-12 08:08] LABS: Basophils % (A) 1 %; CH 29.4; CHCM 32.7; Eosinophils # (A) 0.5 k/uL (0-0.7); Eosinophils % (A) 6 %; HCT 34.3 % (39.0-53.0); HDW 2.92; Luc # (Auto) 0.12; Luc % (Auto) 2; Lymphocytes # (A) 0.7 k/uL (1.0-4.8); Lymphocytes % (A) 11 %; MCH 29.1 pg (25.0-35.0); MCHC 32.2 g/dL (31.0-37.0); MCV 90.4 fL (80.0-100.0); Mean Platelet Volume 7.3; Monocytes # (A) 0.5 k/uL (0-1.0); Monocytes % (A) 7 %; Neutrophils # (A) 5.2 k/uL (1.3-7.7); Neutrophils % (A) 74 %; RBC 3.79 m/uL (4.30-5.90); RDW 14.8 % (11.5-15.5); WBC (Perox) 7.58
[2016-06-12] MEDS: HEPARIN SODIUM,PORCINE 5,000 UNIT/ML 1 ML VIAL SQ SCH ×2 (08:19→20:10)
[2016-06-12] MEDS: PANTOPRAZOLE 40 MG/10 ML VIAL IVP SCH (08:19)
[2016-06-12 08:28] LABS: ALT 22 U/L (21-72); AST 21 U/L (17-59); Alkaline Phosphatase 69 U/L (38-126); Anion Gap 11 mmol/L; Blood Urea Nitrogen 15 mg/dL (9-20); Calcium 8.1 mg/dL (8.4-10.2); Carbon Dioxide 23 mmol/L (22-30); Chloride 102 mmol/L (98-107); Glucose 109 mg/dL (74-99); Magnesium 1.7 mg/dL (1.6-2.3); Non-African American GFR(MDRD) >60 (>60 ml/min/1.73 sqM); Potassium 3.6 mmol/L (3.5-5.1); Sodium 136 mmol/L (137-145); Total Bilirubin 0.9 mg/dL (0.2-1.3); Total Protein 5.5 g/dL (6.3-8.2)
--- NOTE | 2016-06-12 11:35 | P.PN ---
Subjective Principal diagnosis: 85-year-old male being seen on rounds resting in bed there's been no new events. Patients being followed by surgical service. The x-ray done the day before shows no evidence of an obstruction at this time. Patient has active bowel sounds and the nasal gastric tube has been removed. Patient initially was transferred from [facility]. Has a history of advanced dementia with hearing loss. Patient was found to have a small bowel obstruction. Was treated with a nasal gastric tube with the surgical consultation requested the x -rays of the abdomen showed an improvement the nasogastric tube has been removed Objective - Vital Signs Vital signs: Vital Signs Temp 97.7 F 06/12/16 08:00 Pulse 70 06/12/16 08:00 Resp 18 06/12/16 08:00 BP 161/73 06/12/16 08:00 Pulse Ox 96 06/12/16 08:00 Intake & Output 06/11/16 06/12/16 06/12/16 18:59 06:59 18:59 Intake Total 850 850 850 Output Total 2450 Balance -1600 850 850 Weight 71 kg 70.5 kg Intake: IV 50 50 850 Dextrose 5%-0.45% NaCl 1, 800 000 ml @ 100 mls/hr IV . Q10H [facility] Rx#:[id number] Piperacillin-Tazobactam 3 50 50 50 .375 gm In Dextrose/Water 1 50ml.bag @ 12.5 mls/hr IVPB Q8HR [facility] Rx#: [id number] Intake, IV Titration 800 800 Amount Dextrose 5%-0.45% NaCl 1, 600 800 000 ml @ 100 mls/hr IV . Q10H [facility] Rx#:[id number] Potassium Chloride 10 meq 200 Lidocaine 2% Inj 10 mg In Sodium Chloride 0.9% 100 ml @ 100 mls/hr IVPB Q1HR [facility] Rx#:[id number] Output: Gastric Drainage 100 Urine 2350 Other: Voiding Method Indwelling Catheter Indwelling Catheter Indwelling Catheter # Bowel Movements 1 - Exam Physical exam 85-year-old male Resting comfortably. Opens eyes to verbal stimuli appears in no acute distress Lungs diminished at the bases otherwise adequate air movement Heart S1-S2 audible and regular monitor sinus rhythm Abdomen soft and not distended bowel tones present indwelling Arellano catheter in place 1 document stool Extremities no edema noted - Labs CBC & Chem 7: 06/12/16 06:39 06/12/16 06:39 Labs: Abnormal Lab Results - Last 24 Hours (Table) 06/11/16 06/11/16 06/12/16 Range/Units 11:58 20:19 06:39 RBC 3.79 L (4.30-5.90) m/uL Hgb 11.0 L (13.0-17.5) gm/dL Hct 34.3 L (39.0-53.0) % Lymphocytes # 0.7 L (1.0-4.8) k/uL Sodium (137-145) mmol/L Glucose (74-99) mg/dL POC Glucose (mg/dL) 102 H 117 H (75-99) mg/dL Calcium (8.4-10.2) mg/dL Total Protein (6.3-8.2) g/dL Albumin (3.5-5.0) g/dL 06/12/16 06/12/16 Range/Units 06:39 06:44 RBC (4.30-5.90) m/uL Hgb (13.0-17.5) gm/dL Hct (39.0-53.0) % Lymphocytes # (1.0-4.8) k/uL Sodium 136 L (137-145) mmol/L Glucose 109 H (74-99) mg/dL POC Glucose (mg/dL) 114 H (75-99) mg/dL Calcium 8.1 L (8.4-10.2) mg/dL Total Protein 5.5 L (6.3-8.2) g/dL Albumin 2.9 L (3.5-5.0) g/dL Microbiology - Last 24 Hours (Table) 06/08/16 21:01 Blood Culture - Preliminary Blood No Growth after 72 hours Assessment and Plan Plan: Assessment and plan 1. Small bowel obstruction: Surgery is following closely. Appreciate their input. Abdominal x-ray shows an improvement . NG tube removed Surgery did offer operative exploration. however, family was not interested in surgery at this point. 2. Sepsis on presentation most likely secondary to intra-abdominal source. Currently on IV Zosyn. Blood culture negative so far. Lactate is back to normal. Infectious disease following. 3. Essential hypertension: Blood pressures have shown improvement with the clonidine patch. Continue with hydralazine as needed 4. Advanced dementia 5. Bilateral hearing loss 6. GI and DVT prophylaxis with IV Protonix and subcu heparin 7. Hypokalemia patient receiving potassium supplement. Repeat labs in a.m. improving The above dictated assessment and findings were discussed with dr yaritza Gatica and the plan of care have been dictated as directed. Alka Leblanc nurse practitioner acting as a scribe for dr vigil
[2016-06-12 11:58] LABS: Glucose,Whole Blood 115 mg/dL (75-99)
--- NOTE | 2016-06-12 15:31 | P.PN ---
Progress Note - Text The patient is stable. Denies any nausea or vomiting. There is one documented stool at least. G-tube came out yesterday. Abdominal x-ray shows a nonspecific bowel gas pattern with no obstruction. On examination the patient is a stable hydration satisfactory. Abdomen is really quite soft hardly any distention at all. No tenderness no mass or organomegaly or hernias noted. Impression small bowel obstruction improving with the medical management. Recommend continued medical management slowly advance his diet.
[2016-06-12] MEDS: HYDROmorphone 1 MG/ML 1 ML SYRINGE IVP PRN (20:18)
[2016-06-13] MEDS: HYDROmorphone 1 MG/ML 1 ML SYRINGE IVP PRN ×2 (03:57→09:14)
[2016-06-13] MEDS: PANTOPRAZOLE 40 MG/10 ML VIAL IVP SCH (08:28)
[2016-06-13] MEDS: HEPARIN SODIUM,PORCINE 5,000 UNIT/ML 1 ML VIAL SQ SCH ×2 (08:29→20:05)
[2016-06-13] MEDS: PIPERACILLIN-TAZOBACTAM 3.375 GM in DEXTROSE/WATER 1 50ML.BAG IVPB SCH ×3 (08:29→23:17)
--- NOTE | 2016-06-13 08:52 | PN ---
DATE OF SERVICE: 06/12/2016 Reason for follow-up is small bowel obstruction and a question of abdominal sepsis. The patient is afebrile. His NG has been discontinued. No further nausea or vomiting has been noticed. He remains to be lying comfortably and no diarrhea. On examination, blood pressure is 121/61 with a pulse of 72, temperature 98.4. He is 98% on room air. General description is an elderly male, lying in bed in no distress. RESPIRATORY SYSTEM: Unlabored breathing. Clear to auscultation anteriorly. HEART: S1, S2 with regular rate and rhythm. ABDOMEN: Soft, no tenderness. LABS: Hemoglobin is 11, white count 10.0, BUN of 15, creatinine 0.77, blood culture has been negative. DIAGNOSTIC IMPRESSION AND PLAN: Patient admitted to hospital with possible abdominal sepsis in a patient with the small bowel obstruction did show overall clinical improvement. Currently on Zosyn. That will switch to oral. His oral intake is improved. Continue supportive care.
[2016-06-13 09:41] LABS: Basophils % (A) 1 %; CHCM 32.6; Eosinophils # (A) 0.6 k/uL (0-0.7); Eosinophils % (A) 9 %; HCT 34.3 % (39.0-53.0); HGB 11.2 gm/dL (13.0-17.5); Luc # (Auto) 0.11; Luc % (Auto) 2; Lymphocytes # (A) 0.8 k/uL (1.0-4.8); Lymphocytes % (A) 12 %; MCH 29.1 pg (25.0-35.0); MCHC 32.5 g/dL (31.0-37.0); MCV 89.4 fL (80.0-100.0); Monocytes # (A) 0.4 k/uL (0-1.0); Monocytes % (A) 6 %; Neutrophils # (A) 4.9 k/uL (1.3-7.7); Neutrophils % (A) 71 %; RBC 3.83 m/uL (4.30-5.90); RDW 14.7 % (11.5-15.5); WBC 6.9 k/uL (3.8-10.6); WBC (Perox) 7.24
[2016-06-13 10:06] LABS: ALT 33 U/L (21-72); AST 32 U/L (17-59); Alkaline Phosphatase 74 U/L (38-126); Anion Gap 8 mmol/L; Blood Urea Nitrogen 12 mg/dL (9-20); Calcium 8.2 mg/dL (8.4-10.2); Carbon Dioxide 24 mmol/L (22-30); Chloride 101 mmol/L (98-107); Glucose 109 mg/dL (74-99); Magnesium 1.6 mg/dL (1.6-2.3); Non-African American GFR(MDRD) >60 (>60 ml/min/1.73 sqM); Potassium 3.6 mmol/L (3.5-5.1); Sodium 133 mmol/L (137-145); Total Bilirubin 0.7 mg/dL (0.2-1.3); Total Protein 5.5 g/dL (6.3-8.2)
--- NOTE | 2016-06-13 10:30 | P.PN ---
Progress Note - Text The patient has not had any nausea or vomiting. Had a bowel movement yesterday. Tolerated his clear liquids. Due to start a full liquid diet today. On examination the patient is stable no fever. Abdomen is generally quite soft no tenderness no mass or organomegaly. Has a supraumbilical ventral incisional hernia reducible and nontender. . Impression; Small bowel obstruction progressively improving on medical management. Recommendation see how he does on full liquid diet and hopefully can be advanced to soft diet tomorrow.
[2016-06-13] MEDS ORDERED: POTASSIUM CHLORIDE ER 20 MEQ TAB.ER PO STA (10:42)
[2016-06-13] MEDS ORDERED: ACETAMINOPHEN TAB 500 MG TAB PO PRN (10:42)
--- NOTE | 2016-06-13 10:43 | P.PN ---
Subjective 85-year-old male being seen on rounds this morning is more awake and alert patient's chief complaint this morning is "I hurt all over complaining lower back pain and leg pain. " Patients being followed by surgical service for a small bowel obstruction being treated for medical management patient currently is on a full liquid diet tolerating no reports of nausea vomiting no stool document Objective - Vital Signs Vital signs: Vital Signs Temp 96.6 F L 06/13/16 07:00 Pulse 69 06/13/16 07:00 Resp 17 06/13/16 07:00 BP 145/68 06/13/16 07:00 Pulse Ox 98 06/13/16 07:00 Intake & Output 06/12/16 06/13/16 06/13/16 18:59 06:59 18:59 Intake Total 1100 Output Total 525 300 Balance 575 -300 Weight 72 kg Intake: IV 850 Dextrose 5%-0.45% NaCl 1, 800 000 ml @ 100 mls/hr IV . Q10H [facility] Rx#:[id number] Piperacillin-Tazobactam 3 50 .375 gm In Dextrose/Water 1 50ml.bag @ 12.5 mls/hr IVPB Q8HR [facility] Rx#: [id number] Oral 250 Output: Urine 525 300 Other: Voiding Method Indwelling Catheter Indwelling Catheter Indwelling Catheter # Voids 1 - Exam Physical exam 85-year-old male Resting comfortably more awake and alert this morning reportedly experiencing lower back pain and leg pain denying abdominal pain when questioning Lungs diminished at the bases otherwise adequate air movement Heart S1-S2 audible and regular monitor sinus rhythm Abdomen soft and not distended bowel tones present indwelling Arellano catheter in place 1 document stool yesterday no stool documented today reportedly tolerating the full liquid diet reports no nausea vomiting currently denying abdominal discomfort Extremities no edema noted - Labs CBC & Chem 7: 06/13/16 09:17 06/13/16 09:17 Labs: Abnormal Lab Results - Last 24 Hours (Table) 06/12/16 06/13/16 06/13/16 Range/Units 11:56 09:17 09:17 RBC 3.83 L (4.30-5.90) m/uL Hgb 11.2 L (13.0-17.5) gm/dL Hct 34.3 L (39.0-53.0) % Lymphocytes # 0.8 L (1.0-4.8) k/uL Sodium 133 L (137-145) mmol/L Glucose 109 H (74-99) mg/dL POC Glucose (mg/dL) 115 H (75-99) mg/dL Calcium 8.2 L (8.4-10.2) mg/dL Total Protein 5.5 L (6.3-8.2) g/dL Albumin 2.9 L (3.5-5.0) g/dL Microbiology - Last 24 Hours (Table) 06/08/16 21:01 Blood Culture - Preliminary Blood No Growth after 96 hours Assessment and Plan Plan: Assessment and plan 1. Small bowel obstruction: Surgery is following closely. Appreciate their input. Abdominal x-ray shows an improvement . NG tube removed Surgery did offer operative exploration. however, family was not interested in surgery at this point. Diet to be advanced per recommendations of surgical service 2. Sepsis on presentation most likely secondary to intra-abdominal source. Currently on IV Zosyn. Blood culture negative so far. Lactate is back to normal. Infectious disease following. 3. Essential hypertension: Blood pressures have shown improvement with the clonidine patch. Continue with hydralazine as needed 4. Advanced dementia 5. Bilateral hearing loss 6. GI and DVT prophylaxis with IV Protonix and subcu heparin 7. Hypokalemia patient receiving potassium supplement. Repeat labs in a.m. improving Chronic lower back pain Chronic physical debility limited mobility with decrease functionality History of a prior CVA The above dictated assessment and findings were discussed with dr yaritza Gatica and the plan of care have been dictated as directed. Alka Leblanc nurse practitioner acting as a scribe for dr vigil
[2016-06-13] MEDS: DEXTROSE 5%-0.45% NACL 1,000 ML IV SCH ×3 (12:38→20:05)
[2016-06-13] MEDS: ONDANSETRON 4 MG/2 ML VIAL IVP PRN (12:39)
[2016-06-14] MEDS: DEXTROSE 5%-0.45% NACL 1,000 ML IV SCH (05:18)
[2016-06-14] MEDS: PANTOPRAZOLE 40 MG/10 ML VIAL IVP SCH (09:06)
[2016-06-14] MEDS: PIPERACILLIN-TAZOBACTAM 3.375 GM in DEXTROSE/WATER 1 50ML.BAG IVPB SCH ×3 (09:06→23:14)
[2016-06-14] MEDS: HEPARIN SODIUM,PORCINE 5,000 UNIT/ML 1 ML VIAL SQ SCH ×2 (09:06→20:56)
[2016-06-14 09:24] LABS: Basophils % (A) 0 %; CH 29.2; CHCM 33.5; Eosinophils # (A) 0.5 k/uL (0-0.7); Eosinophils % (A) 7 %; HCT 33.2 % (39.0-53.0); HGB 11.3 gm/dL (13.0-17.5); Luc # (Auto) 0.07; Luc % (Auto) 1; Lymphocytes # (A) 0.7 k/uL (1.0-4.8); Lymphocytes % (A) 10 %; MCH 29.8 pg (25.0-35.0); MCHC 34.1 g/dL (31.0-37.0); MCV 87.6 fL (80.0-100.0); Mean Platelet Volume 6.4; Monocytes # (A) 0.4 k/uL (0-1.0); Monocytes % (A) 6 %; Neutrophils # (A) 5.4 k/uL (1.3-7.7); Neutrophils % (A) 76 %; RBC 3.79 m/uL (4.30-5.90); RDW 14.9 % (11.5-15.5); WBC 7.1 k/uL (3.8-10.6)
[2016-06-14 09:45] LABS: ALT 40 U/L (21-72); AST 31 U/L (17-59); Alkaline Phosphatase 76 U/L (38-126); Anion Gap 8 mmol/L; Blood Urea Nitrogen 7 mg/dL (9-20); Calcium 8.4 mg/dL (8.4-10.2); Carbon Dioxide 23 mmol/L (22-30); Chloride 104 mmol/L (98-107); Glucose 114 mg/dL (74-99); Magnesium 1.7 mg/dL (1.6-2.3); Non-African American GFR(MDRD) >60 (>60 ml/min/1.73 sqM); Potassium 3.9 mmol/L (3.5-5.1); Sodium 135 mmol/L (137-145); Total Bilirubin 0.7 mg/dL (0.2-1.3); Total Protein 5.4 g/dL (6.3-8.2)
--- NOTE | 2016-06-14 11:38 | P.PN ---
Subjective Patient is doing well today. He is tolerating soft diet. No issues brought up by nursing staff. Objective - Vital Signs Vital signs: Vital Signs Temp 98.8 F 06/14/16 07:00 Pulse 96 06/14/16 07:00 Resp 19 06/14/16 07:00 BP 155/70 06/14/16 07:00 Pulse Ox 97 06/14/16 07:00 Intake & Output 06/13/16 06/14/16 06/14/16 18:59 06:59 18:59 Output Total 1200 650 Balance -1200 -650 Weight 74.5 kg Output: Urine 1200 650 Other: Voiding Method Indwelling Catheter Indwelling Catheter Indwelling Catheter # Voids 1 - Exam General: The patient is awake and alert, in no distress Eye: there is normal conjunctiva bilaterally. Neck: The neck is supple, there is no JVD. Cardiovascular: Normal S1-S2, no S3-S4, no murmurs. Respiratory: Lungs clear to auscultation bilaterally Gastrointestinal: Abdomen is soft, nontender Musculoskeletal: There is no pedal edema. Neurological:. Speech is normal. Skin: Skin is warm and dry - Labs CBC & Chem 7: 06/14/16 08:45 06/14/16 08:45 Labs: Abnormal Lab Results - Last 24 Hours (Table) 06/14/16 06/14/16 Range/Units 08:45 08:45 RBC 3.79 L (4.30-5.90) m/uL Hgb 11.3 L (13.0-17.5) gm/dL Hct 33.2 L (39.0-53.0) % Lymphocytes # 0.7 L (1.0-4.8) k/uL Sodium 135 L (137-145) mmol/L BUN 7 L (9-20) mg/dL Glucose 114 H (74-99) mg/dL Total Protein 5.4 L (6.3-8.2) g/dL Albumin 2.9 L (3.5-5.0) g/dL Microbiology - Last 24 Hours (Table) 06/08/16 21:01 Blood Culture - Preliminary Blood No Growth after 120 hours Assessment and Plan Plan: 1. Small bowel obstruction: Patient is improving clinically. He is tolerating soft diet. Diet to be advanced per recommendations of surgical service 2. Sepsis on presentation most likely secondary to intra-abdominal source. Currently on IV Zosyn. Blood culture negative so far. Lactate is back to normal. Infectious disease following. 3. Essential hypertension: Discontinue clonidine patch. Resume home dose of atenolol. Continue with hydralazine as needed. Continue to monitor closely 4. Advanced dementia 5. Bilateral hearing loss 6. GI and DVT prophylaxis with IV Protonix and subcu heparin 7. Chronic lower back pain 8. Chronic physical debility limited mobility with decrease functionality 9. History of a prior CVA We will continue current regimen otherwise. Repeat lab work in the morning. Appreciate [employer] management consultant's recommendations.
[2016-06-14] MEDS: ATENOLOL 25 MG TAB PO SCH (12:06)
[2016-06-14] MEDS: HYDROcodone/APAP 5-325MG 1 EACH TAB PO PRN (12:06)
[2016-06-14] MEDS: ASPIRIN 81 MG CHEW PO SCH (12:06)
--- NOTE | 2016-06-14 17:45 | P.PN ---
Subjective Principal diagnosis: Small bowel obstruction patient doing well today. Denies abdominal pain. Tolerating a diet. Normal bowel movements today. He remains nondistended. Objective - Vital Signs Vital signs: Vital Signs Temp 97.4 F L 06/14/16 15:00 Pulse 68 06/14/16 15:00 Resp 16 06/14/16 15:00 BP 126/66 06/14/16 15:00 Pulse Ox 98 06/14/16 15:00 Intake & Output 06/13/16 06/14/16 06/14/16 18:59 06:59 18:59 Output Total 6316 321 8783 Balance -1200 -650 -2000 Weight 74.5 kg Output: Urine 8000 022 6360 Other: Voiding Method Indwelling Catheter Indwelling Catheter Indwelling Catheter # Voids 1 # Bowel Movements 1 - Exam Abdomen: Soft, nondistended, no appreciable tenderness at this time - Labs CBC & Chem 7: 06/14/16 08:45 06/14/16 08:45 Labs: Abnormal Lab Results - Last 24 Hours (Table) 06/14/16 06/14/16 Range/Units 08:45 08:45 RBC 3.79 L (4.30-5.90) m/uL Hgb 11.3 L (13.0-17.5) gm/dL Hct 33.2 L (39.0-53.0) % Lymphocytes # 0.7 L (1.0-4.8) k/uL Sodium 135 L (137-145) mmol/L BUN 7 L (9-20) mg/dL Glucose 114 H (74-99) mg/dL Total Protein 5.4 L (6.3-8.2) g/dL Albumin 2.9 L (3.5-5.0) g/dL Microbiology - Last 24 Hours (Table) 06/08/16 21:01 Blood Culture - Preliminary Blood No Growth after 120 hours Assessment and Plan (1) Small bowel obstruction Narrative/Plan: Will advanced diet to a low fiber diet. Increase activity levels. No surgical intervention planned at this time. Status: Acute
[2016-06-14] MEDS: MELATONIN 5 MG TABLET PO SCH (20:56)
--- NOTE | 2016-06-15 09:03 | PN ---
DATE OF SERVICE: 06/14/2016 Reason for follow up is abdominal sepsis. INTERVAL HISTORY: The patient is afebrile. He seems to be more awake, alert, and NG has been discontinued. No nausea or vomiting has been noticed or any diarrhea. Patient denies having any chest pain. No significant abdominal pain. On examination, blood pressure 126/56 with a pulse of 68, temperature 97.4. He is 98% on 2 liters nasal cannula. General description is an elderly male lying in bed in no distress. RESPIRATORY SYSTEM: Unlabored breathing. Clear to auscultation anteriorly. HEART: S1, S2. Regular rate and rhythm. ABDOMEN: Soft, no tenderness. LABS: Hemoglobin is 11.3, white count 7.1 with a BUN of 7, creatinine 0.72. Blood and urine culture have been negative. DIAGNOSTIC IMPRESSION AND PLAN: Patient with sepsis in a patient who did have abdominal source with small bowel obstruction, nausea, vomiting and elevated white count. His white count normalized. Blood culture has been negative. Currently on Zosyn. That will be switched to oral Augmentin for short 5 to 7 day course at the time of discharge. Continue supportive care. MTDD
[2016-06-15] MEDS: PIPERACILLIN-TAZOBACTAM 3.375 GM in DEXTROSE/WATER 1 50ML.BAG IVPB SCH ×3 (09:11→23:13)
[2016-06-15] MEDS: HEPARIN SODIUM,PORCINE 5,000 UNIT/ML 1 ML VIAL SQ SCH ×2 (09:11→21:03)
[2016-06-15] MEDS: ASPIRIN 81 MG CHEW PO SCH (09:11)
[2016-06-15] MEDS: PANTOPRAZOLE 40 MG TABLET PO SCH (09:11)
[2016-06-15] MEDS: ATENOLOL 25 MG TAB PO SCH (09:11)
[2016-06-15] MEDS: DULoxetine HCL 30 MG CAPSULE.DR PO SCH (09:11)
[2016-06-15 09:36] LABS: Basophils % (A) 1 %; CHCM 32.3; Eosinophils # (A) 0.6 k/uL (0-0.7); Eosinophils % (A) 8 %; HCT 34.8 % (39.0-53.0); HDW 2.98; HGB 11.1 gm/dL (13.0-17.5); Luc % (Auto) 1; Lymphocytes # (A) 0.6 k/uL (1.0-4.8); Lymphocytes % (A) 9 %; MCH 28.8 pg (25.0-35.0); MCHC 31.9 g/dL (31.0-37.0); MCV 90.1 fL (80.0-100.0); Mean Platelet Volume 6.2; Monocytes # (A) 0.5 k/uL (0-1.0); Monocytes % (A) 7 %; Neutrophils % (A) 74 %; RBC 3.86 m/uL (4.30-5.90); WBC 6.7 k/uL (3.8-10.6); WBC (Perox) 7.44
[2016-06-15 10:22] LABS: Anion Gap 9 mmol/L; Blood Urea Nitrogen 7 mg/dL (9-20); Calcium 8.6 mg/dL (8.4-10.2); Carbon Dioxide 24 mmol/L (22-30); Chloride 101 mmol/L (98-107); Glucose 99 mg/dL (74-99); Non-African American GFR(MDRD) >60 (>60 ml/min/1.73 sqM); Potassium 4.4 mmol/L (3.5-5.1); Sodium 134 mmol/L (137-145)
[2016-06-15 10:54] VITALS: BMI 23.6
[2016-06-15] MEDS: HYDROcodone/APAP 5-325MG 1 EACH TAB PO PRN (13:09)
--- NOTE | 2016-06-15 15:08 | P.PN ---
Subjective Patient is doing fairly well today. He is concerned that he is not getting his metformin. No abdominal pain or discomfort. He is scheduled for a modified swallow study today. Objective - Vital Signs Vital signs: Vital Signs Temp 97.4 F L 06/15/16 15:03 Pulse 64 06/15/16 15:03 Resp 16 06/15/16 15:03 BP 127/70 06/15/16 15:03 Pulse Ox 98 06/15/16 15:03 Intake & Output 06/14/16 06/15/16 06/15/16 18:59 06:59 18:59 Output Total 1999 1299 850 Balance -19991300 850 Weight 74.5 kg 70.5 kg 70.5 kg Output: Urine 1999 1299 850 Other: Voiding Method Indwelling Catheter Indwelling Catheter Indwelling Catheter # Bowel Movements 1 1 - Exam General: The patient is awake and alert, in no distress Eye: there is normal conjunctiva bilaterally. Neck: The neck is supple, there is no JVD. Cardiovascular: Normal S1-S2, no S3-S4, no murmurs. Respiratory: Lungs clear to auscultation bilaterally Gastrointestinal: Abdomen is soft, nontender Musculoskeletal: There is no pedal edema. Neurological:. Speech is normal. Skin: Skin is warm and dry - Labs CBC & Chem 7: 06/15/16 08:46 06/15/16 08:46 Labs: Abnormal Lab Results - Last 24 Hours (Table) 06/15/16 06/15/16 Range/Units 08:46 08:46 RBC 3.86 L (4.30-5.90) m/uL Hgb 11.1 L (13.0-17.5) gm/dL Hct 34.8 L (39.0-53.0) % Lymphocytes # 0.6 L (1.0-4.8) k/uL Sodium 134 L (137-145) mmol/L BUN 7 L (9-20) mg/dL Microbiology - Last 24 Hours (Table) 06/08/16 21:01 Blood Culture - Final Blood No Growth after 144 hours Assessment and Plan Plan: 1. Small bowel obstruction: Patient is improved clinically. He is tolerating soft diet, advance as tolerated to regular. Seen and evaluated by general surgery. No surgical intervention needed. 2. Sepsis on presentation most likely secondary to intra-abdominal source. Currently on IV Zosyn. Blood culture negative so far. Lactate is back to normal. Infectious disease following. Discontinue antibiotic prior to discharge. 3. Essential hypertension: Continue home dose of blood pressure medication 4. Advanced dementia 5. Bilateral hearing loss 6. GI and DVT prophylaxis with IV Protonix and subcu heparin 7. Chronic lower back pain 8. Chronic physical debility limited mobility with decrease functionality 9. History of a prior CVA Continue supportive care. Increase activity level. 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 Patient to return to [facility] in [facility] where he resides as long-term resident. We will continue current regimen otherwise. Repeat lab work in the morning. Appreciate workers compensation consultant's recommendations.
--- NOTE | 2016-06-15 16:29 | P.PN ---
Subjective Principal diagnosis: Small bowel obstruction Patient doing well today. No abdominal pain. He did have 2 small bowel movement. He is tolerating his diet. Objective - Vital Signs Vital signs: Vital Signs Temp 97.4 F L 06/15/16 15:03 Pulse 64 06/15/16 15:03 Resp 16 06/15/16 15:03 BP 127/70 06/15/16 15:03 Pulse Ox 98 06/15/16 15:03 Intake & Output 06/14/16 06/15/16 06/15/16 18:59 06:59 18:59 Output Total 1999 1300 850 Balance -19991300 -850 Weight 74.5 kg 70.5 kg 70.5 kg Output: Urine 1999 1299 850 Other: Voiding Method Indwelling Catheter Indwelling Catheter Indwelling Catheter # Bowel Movements 1 1 - Exam Abdomen: Soft, nontender, nondistended - Labs CBC & Chem 7: 06/15/16 08:46 06/15/16 08:46 Labs: Abnormal Lab Results - Last 24 Hours (Table) 06/15/16 06/15/16 Range/Units 08:46 08:46 RBC 3.86 L (4.30-5.90) m/uL Hgb 11.1 L (13.0-17.5) gm/dL Hct 34.8 L (39.0-53.0) % Lymphocytes # 0.6 L (1.0-4.8) k/uL Sodium 134 L (137-145) mmol/L BUN 7 L (9-20) mg/dL Microbiology - Last 24 Hours (Table) 06/08/16 21:01 Blood Culture - Final Blood No Growth after 144 hours Assessment and Plan (1) Small bowel obstruction Narrative/Plan: Continue low fiber diet. Stable for discharge from my standpoint. Status: Acute
--- NOTE | 2016-06-15 17:30 | PN ---
DATE OF SERVICE: 06/15/2016 REASON FOR FOLLOWUP: Sepsis, abdominal source. INTERVAL HISTORY: The patient is afebrile. He seems to more awake and alert. He has been tolerating his diet. No nausea or vomiting has been noticed or any significant diarrhea. On examination, blood pressure is 175/71 with a pulse of 64, temperature 97.4. He is 96% on room air. General description is an elderly male lying in bed in no distress. RESPIRATORY SYSTEM: Unlabored breathing. Clear to auscultation anteriorly. HEART: S1, S2. Regular rate and rhythm. ABDOMEN: Soft. No tenderness. LABS: Hemoglobin is 11.1, white count 6.7. BUN of 7, creatinine 0.75. Blood and urine cultures have been negative. DIAGNOSTIC IMPRESSION AND PLAN: Patient admitted to hospital with sepsis; source is abdominal. Patient responding to medical therapy, currently on Zosyn. That will be switched to Augmentin for about a week to finish a course of therapy. Family present at bedside. Their questions were answered.
[2016-06-15] MEDS: MELATONIN 5 MG TABLET PO SCH (21:03)
[2016-06-16] MEDS: HYDROcodone/APAP 5-325MG 1 EACH TAB PO PRN ×2 (02:57→13:34)
[2016-06-16] MEDS: PANTOPRAZOLE 40 MG TABLET PO SCH (07:33)
[2016-06-16] MEDS: PIPERACILLIN-TAZOBACTAM 3.375 GM in DEXTROSE/WATER 1 50ML.BAG IVPB SCH ×2 (07:33→15:19)
[2016-06-16] MEDS: DULoxetine HCL 30 MG CAPSULE.DR PO SCH (07:33)
[2016-06-16] MEDS: HEPARIN SODIUM,PORCINE 5,000 UNIT/ML 1 ML VIAL SQ SCH ×2 (07:33→21:47)
[2016-06-16] MEDS: ASPIRIN 81 MG CHEW PO SCH (07:33)
[2016-06-16] MEDS: ATENOLOL 25 MG TAB PO SCH (07:33)
[2016-06-16 08:51] LABS: Basophils % (A) 1 %; CH 29.3; CHCM 33.2; Eosinophils # (A) 0.5 k/uL (0-0.7); Eosinophils % (A) 8 %; HCT 32.4 % (39.0-53.0); HDW 2.96; HGB 10.7 gm/dL (13.0-17.5); Luc % (Auto) 2; Lymphocytes # (A) 0.7 k/uL (1.0-4.8); Lymphocytes % (A) 12 %; MCH 29.2 pg (25.0-35.0); MCHC 32.9 g/dL (31.0-37.0); MCV 88.7 fL (80.0-100.0); Mean Platelet Volume 6.4; Monocytes # (A) 0.4 k/uL (0-1.0); Monocytes % (A) 7 %; Neutrophils # (A) 4.2 k/uL (1.3-7.7); Neutrophils % (A) 71 %; RBC 3.65 m/uL (4.30-5.90); RDW 15.1 % (11.5-15.5); WBC 5.9 k/uL (3.8-10.6); WBC (Perox) 6.21
[2016-06-16 09:09] LABS: Anion Gap 8 mmol/L; Blood Urea Nitrogen 11 mg/dL (9-20); Calcium 8.5 mg/dL (8.4-10.2); Carbon Dioxide 24 mmol/L (22-30); Chloride 100 mmol/L (98-107); Glucose 97 mg/dL (74-99); Non-African American GFR(MDRD) >60 (>60 ml/min/1.73 sqM); Potassium 4.5 mmol/L (3.5-5.1); Sodium 132 mmol/L (137-145)
--- NOTE | 2016-06-16 16:43 | P.PN ---
Subjective Principal diagnosis: partial bowel obstruction patient is an 85-year-old male admitted with multiple medical problems Currently he is doing well he is alert and oriented 3 he is answering questions appropriately Patient has significant medical debility he is able to stand with help he is able to walk was to person to assist He was admitted with small bowel obstruction which resolved with conservative management without need for surgery Patient also had signs of sepsis on presentation he was maintained on IV Zosyn he improved significantly Objective - Vital Signs Vital signs: Vital Signs Temp 98.7 F 06/16/16 15:00 Pulse 64 06/16/16 15:00 Resp 20 06/16/16 15:00 BP 129/56 06/16/16 15:00 Pulse Ox 98 06/16/16 15:00 Intake & Output 06/15/16 06/16/16 06/16/16 18:59 06:59 18:59 Intake Total 100 240 Output Total 850 926 Balance -850 -826 240 Weight 70.5 kg 70.5 kg Intake: Oral 100 240 Output: Urine 850 925 Stool 1 Other: Voiding Method Indwelling Catheter Indwelling Catheter Indwelling Catheter # Bowel Movements 1 1 1 - Exam in general patient is alert and oriented 3 in no apparent distress HEENT head normocephalic and atraumatic Neck is supple no JVD no goiter no lymphadenopathy Chest exam reveals a few scattered rhonchi no wheezing Cardiac exam reveals regular heart sounds no gallops no murmurs Abdomen is soft nontender no organomegaly Sacral area has an ulcer was doing Extremity exam reveals no edema no cyanosis or clubbing - Labs CBC & Chem 7: 06/16/16 08:13 06/16/16 08:13 Labs: Abnormal Lab Results - Last 24 Hours (Table) 06/16/16 06/16/16 Range/Units 08:13 08:13 RBC 3.65 L (4.30-5.90) m/uL Hgb 10.7 L (13.0-17.5) gm/dL Hct 32.4 L (39.0-53.0) % Lymphocytes # 0.7 L (1.0-4.8) k/uL Sodium 132 L (137-145) mmol/L Assessment and Plan Plan: 1. Small bowel obstruction: Patient is improved clinically. He is tolerating soft diet, advance as tolerated to regular. Seen and evaluated by general surgery. No surgical intervention needed. 2. Sepsis on presentation most likely secondary to intra-abdominal source. Currently on IV Zosyn. Blood culture negative so far. Lactate is back to normal. Infectious disease following. Discontinue antibiotic prior to discharge. 3. Essential hypertension: Continue home dose of blood pressure medication 4. mental status changes on admission improved likely related to sepsis currently patient is alert and oriented 3 5. Bilateral hearing loss 6. GI and DVT prophylaxis with IV Protonix and subcu heparin 7. Chronic lower back pain 8. physical debility limited mobility with decrease functionality, patient would benefit of rehab was physical therapy 9. History of a prior CVA Continue supportive care. Increase activity level. 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 Patient to return to [facility] in [facility] where he resides as long-term resident. We will continue current regimen otherwise. Repeat lab work in the morning. Appreciate clinical application consultant's recommendations.
[2016-06-16] MEDS: MELATONIN 5 MG TABLET PO SCH (21:46)
--- NOTE | 2016-06-16 22:50 | PN ---
DATE OF SERVICE: 06/16/2016 REASON FOR FOLLOWUP: Abdominal sepsis. INTERVAL HISTORY: The patient is afebrile. He has been breathing comfortably. Hemodynamically stable. No nausea or vomiting has been noticed. Oral intake seems to be good, per the RN. He did have a formed bowel movement. No evidence of any diarrhea. The patient himself is unable to provide a reliable history. On examination, blood pressure is 129/56 with a pulse of 64, temperature 98.7. He is 98% on room air. General description is an elderly male lying in bed in no distress. RESPIRATORY SYSTEM: Unlabored breathing. Clear to auscultation anteriorly. HEART: S1, S2. Regular rate and rhythm. ABDOMEN: Soft. No tenderness. LABS: Hemoglobin is 10.7 with a white count of 5.9. BUN is 11, creatinine 0.76. DIAGNOSTIC IMPRESSION AND PLAN: Patient with abdominal sepsis, admitted to hospital with a fever, abdominal pain. Patient is responding to the medical therapy. PLAN: Currently on Zosyn. That will be switched to Augmentin for about 5 to 7 days to finish the course of therapy. Continue supportive care.
[2016-06-17 07:20] VITALS: RESP 16
[2016-06-17] MEDS: PANTOPRAZOLE 40 MG TABLET PO SCH (08:00)
[2016-06-17] MEDS: PIPERACILLIN-TAZOBACTAM 3.375 GM in DEXTROSE/WATER 1 50ML.BAG IVPB SCH ×3 (08:53→15:59)
[2016-06-17] MEDS: HEPARIN SODIUM,PORCINE 5,000 UNIT/ML 1 ML VIAL SQ SCH (08:53)
[2016-06-17] MEDS: ATENOLOL 25 MG TAB PO SCH (08:54)
[2016-06-17] MEDS: ASPIRIN 81 MG CHEW PO SCH (08:54)
[2016-06-17] MEDS: DULoxetine HCL 30 MG CAPSULE.DR PO SCH (08:54)
[2016-06-17 09:15] LABS: Basophils % (A) 1 %; CH 29.2; CHCM 33.1; Eosinophils # (A) 0.4 k/uL (0-0.7); Eosinophils % (A) 7 %; HCT 33.2 % (39.0-53.0); HDW 2.89; HGB 10.8 gm/dL (13.0-17.5); Luc # (Auto) 0.12; Luc % (Auto) 2; Lymphocytes # (A) 0.6 k/uL (1.0-4.8); Lymphocytes % (A) 9 %; MCH 28.9 pg (25.0-35.0); MCHC 32.5 g/dL (31.0-37.0); MCV 88.9 fL (80.0-100.0); Mean Platelet Volume 6.2; Monocytes # (A) 0.4 k/uL (0-1.0); Monocytes % (A) 6 %; Neutrophils # (A) 4.8 k/uL (1.3-7.7); Neutrophils % (A) 75 %; RBC 3.74 m/uL (4.30-5.90); RDW 15.2 % (11.5-15.5); WBC 6.4 k/uL (3.8-10.6)
[2016-06-17 09:24] LABS: Anion Gap 11 mmol/L; Blood Urea Nitrogen 14 mg/dL (9-20); Calcium 8.7 mg/dL (8.4-10.2); Carbon Dioxide 24 mmol/L (22-30); Chloride 97 mmol/L (98-107); Glucose 114 mg/dL (74-99); Non-African American GFR(MDRD) >60 (>60 ml/min/1.73 sqM); Sodium 132 mmol/L (137-145)
[2016-06-17 09:28] LABS: Potassium 4.7 mmol/L (3.5-5.1)
[2016-06-17] MEDS: HYDROcodone/APAP 5-325MG 1 EACH TAB PO PRN ×2 (13:09→17:45)
[2016-06-17 14:56] VITALS: BP 108/55; PULSE 68; TEMP 99
--- NOTE | 2016-06-17 15:35 | P.DS ---
Providers Date of admission: 06/08/16 19:38 Expected date of discharge: 06/17/16 Attending physician: Shalom Miguel Consults: 06/09/16 12:04 Consult Physician Routine Consulting Provider: Franki Lara Consult Reason/Comments: Sepsis, intra-abdominal infection? Do you want consulting provider notified?: Yes 06/09/16 12:22 Consult Physician Routine Consulting Provider: Luciano Benson Consult Reason/Comments: bowel obstruction Do you want consulting provider notified?: Already Contacted Primary care physician: Mackenzie Linares Hospital Course: Discharge diagnosis 1. Small bowel obstruction: Patient is improved clinically. He is tolerating soft diet, advance as tolerated to regular. Seen and evaluated by general surgery. No surgical intervention needed. 2. Sepsis on presentation most likely secondary to intra-abdominal source. Continue Augmentin for 5 more days. Blood culture negative so far. Lactate is back to normal. Infectious disease following. Discontinue antibiotic prior to discharge. 3. Essential hypertension: Continue home dose of blood pressure medication 4. mental status changes on admission improved likely related to sepsis currently patient is alert and oriented 3 5. Bilateral hearing loss 6. GI and DVT prophylaxis with IV Protonix and subcu heparin 7. Chronic lower back pain 8. physical debility limited mobility with decrease functionality, patient would benefit of rehab was physical therapy 9. History of a prior CVA 10. Urinary retention: Gill catheter in place. We'll continue Gill catheter for 5 more days. Recommend checking postvoid residual 2 at removal of catheter. Will have patient follow-up with urology in 1 week. We'll have a Flomax 0.4 mg daily started Hospital course This is a 85-year-old who presented with abdominal pain. His poor historian. He had abdominal x-ray which did show a high-grade small bowel obstruction. NG tube was inserted. And surgical service was consulted. There is no surgical intervention warranted. He was treated conservatively. Eventually NG tube was removed as abdominal x-rays improved. And he was started on a diet. He was also having bowel movements. And has been having regular bowel movements. Patient did have evidence of sepsis on admission was started on IV Zosyn and infectious disease was consulted. Surgery has cleared him for discharge. They are recommending he continues a low fiber diet. Infectious diseases recommending Augmentin for 5 more days. Patient also had evidence of urinary retention during this admission. Refer to above for directions. Patient is medical stable for discharge to [facility]. He'll be going to [facility]. Please refer to chart for any further details. Patient Condition at Discharge: Stable Plan - Discharge Summary New Discharge Prescriptions: Amoxicillin/Potassium Clav [Augmentin 875-125 Tablet] 1 tab PO Q12HR #10 tab HYDROcodone/APAP 5-325MG [Solon 5-325] 1 each PO Q4HR PRN #30 tab PRN Reason: Moderate Pain Tamsulosin [Flomax] 0.4 mg PO DAILY #30 cap Discharge Medication List Aspirin 81 mg PO DAILY 05/23/15 [History] Atenolol [Tenormin] 25 mg PO DAILY 05/23/15 [History] Cholecalciferol [Vitamin D3] 1,000 unit PO DAILY 05/23/15 [History] Vit A,C & E/Lutein/Minerals [Ocuvite with Lutein Tablet] 1 tab PO DAILY [History] Omeprazole 20 mg PO DAILY #30 cap 02/21/16 [Rx] Acetaminophen Tab [Tylenol] 650 mg PO Q4H PRN 06/08/16 [History] DULoxetine HCL [Cymbalta] 30 mg PO DAILY 06/08/16 [History] Loperamide [Imodium] 2 mg PO DAILY PRN 06/08/16 [History] Loratadine [Claritin] 10 mg PO DAILY 06/08/16 [History] Melatonin 5 mg PO DAILY 06/08/16 [History] Multivitamins, Thera [Multivitamin (formulary)] 1 tab PO DAILY 06/09/16 [History ] Amoxicillin/Potassium Clav [Augmentin 875-125 Tablet] 1 tab PO Q12HR #10 tab [Rx] HYDROcodone/APAP 5-325MG [Solon 5-325] 1 each PO Q4HR PRN #30 tab 06/17/16 [Rx] Tamsulosin [Flomax] 0.4 mg PO DAILY #30 cap 06/17/16 [Rx] Follow up Appointment(s)/Referral(s): Mackenzie Linares MD [Primary Care Provider] - 1 Week Rashard Iraheta MD [STAFF PHYSICIAN] - 1 Week Activity/Diet/Wound Care/Special Instructions: Consider follow up with speech therapy for dysarthria treatment Diet: cardiac Activity: as tolerated Keep gill catheter in place for 5 more days then remove. Check post void residual x 2 Discharge Disposition: TRANSFER TO SNF/ECF
--- NOTE | 2016-06-17 16:06 | PN ---
DATE OF SERVICE: 06/17/2016 REASON FOR FOLLOWUP: Abdominal infection in a patient with a small bowel obstruction. INTERVAL HISTORY: The patient is afebrile, has been breathing comfortably. He is able to tolerate his diet with no nausea or vomiting or any significant diarrhea. On examination, blood pressure is 151/65 with a pulse of 76, temperature 99.1. He is 92% on room air. General description is an elderly male up in the bed in no distress. RESPIRATORY SYSTEM: Unlabored breathing. Clear to auscultation anteriorly. HEART: S1, S2. Regular rate and rhythm. ABDOMEN: Soft. No tenderness. EXTREMITIES: No edema of feet. LABS: His hemoglobin is 10.8 with a white count 6.4, BUN of 14, creatinine 0.84. DIAGNOSTIC IMPRESSION AND PLAN: Patient admitted to hospital with sepsis. Source is likely abdominal. Patient responded to the medical therapy. She received about a week of IV Zosyn and can be switched over to Augmentin 875 mg b.i.d. for another 7 days to finish course of therapy. Family was present at bedside. Their questions and concerned were answered.
== END 2016-06-17 18:27 | DRG 872 ==
LOC: 6SEL 19:38 → 4MS4W 06-12 13:54
PROVIDERS: ADMIT Internal Medicine; ATTEND Internal Medicine
DX: A41.9 Sepsis, unspecified organism (principal); K56.60 Unspecified intestinal obstruction; F03.90 Unspecified dementia, unspecified severity, without behavioral disturbance, psychotic disturbance, mood disturbance, and anxiety; E87.6 Hypokalemia; G89.29 Other chronic pain; H35.30 Unspecified macular degeneration; H91.93 Unspecified hearing loss, bilateral; I10 Essential (primary) hypertension; K43.2 Incisional hernia without obstruction or gangrene; R33.9 Retention of urine, unspecified; Z79.82 Long term (current) use of aspirin; Z79.899 Other long term (current) drug therapy; Z80.0 Family history of malignant neoplasm of digestive organs; Z85.048 Personal history of other malignant neoplasm of rectum, rectosigmoid junction, and anus; Z86.73 Personal history of transient ischemic attack (TIA), and cerebral infarction without residual deficits; Z92.21 Personal history of antineoplastic chemotherapy; Z92.3 Personal history of irradiation
CPT/HCPCS: 74020; 80048; 80053; 81001; 83605; 83735; 85025; 87040; 87086